=== PATIENT | male | born 1945 | race Caucasian/White ===

== ENCOUNTER 2021-03-29 11:54 | Day surgery (SDC) | payer MEDICARE, OTHER ==
[~2021-03-29] VITALS: Ht 180.3 cm; Wt 70.4 kg
[~2021-03-29 11:54] MED LIST: HYDMOR2 PO; HYOS.125; OMEP20ER; OMEP20ER PO; PROM25 PO
--- NOTE | 2021-03-29 12:49 | NUR ---
03/29/21 1249 May Choi CALL LIGHT WITHIN REACH. EYE DROPS AND PLEDGET AROUND 1220
== END 2021-03-29 14:10 | disposition home or self-care (01) ==
LOC: ORSCSDS 11:54
PROVIDERS: Ophthalmology
PROC: 08RJ3JZ Replacement of Right Lens with Synthetic Substitute, Percutaneous Approach (ICD-10-PCS; principal; 2021-03-29 13:30)
DX: H25.11 Age-related nuclear cataract, right eye (principal); F17.210 Nicotine dependence, cigarettes, uncomplicated
CPT/HCPCS: J2001; J2250; J3010; J3301; J7040; V2632

== ENCOUNTER 2021-04-19 06:08 | Day surgery (SDC) | payer MEDICARE, OTHER ==
[~2021-04-19] VITALS: Ht 177.8 cm; Wt 71.3 kg
[2021-04-19] MEDS ORDERED: ASPI81CH PO (06:23)
[2021-04-19] MEDS ORDERED: TAMS.4ER PO (06:23)
[2021-04-19] MEDS ORDERED: OMEP20ER PO (06:23)
--- NOTE | 2021-04-19 06:30 | NUR ---
04/19/21 0630 JUDSON CARVAJAL TETRACAINE DROP INSTILLED AT 0619. PLEDGETT INSERTED AT 0620
--- NOTE | 2021-04-19 08:15 | NUR ---
04/19/21 0815 May Choi PT HX OF AFIB. PT DENIES ANY DIZZINESS, NAUSEA OR LIGHTHEADEDNESS. BP WNL. DR. MONTELONGO AWARE AND IS OK WITH PT GOING HOME TODAY WITH NO FURTHER TEST. PT AWAKE, ALERT AND COMMUNICATES WELL. PT SMILING AND MAKING JOKES.
== END 2021-04-19 08:09 | disposition home or self-care (01) ==
LOC: ORSCSDS 06:08
PROVIDERS: Ophthalmology
PROC: 08RK3JZ Replacement of Left Lens with Synthetic Substitute, Percutaneous Approach (ICD-10-PCS; principal; 2021-04-19 07:30)
DX: H25.12 Age-related nuclear cataract, left eye (principal); I48.91 Unspecified atrial fibrillation; F17.210 Nicotine dependence, cigarettes, uncomplicated; Z79.899 Other long term (current) drug therapy
CPT/HCPCS: J2001; J2250; J3010; J3301; J7040; V2632